=== PATIENT | male | born 1950 | race Caucasian/White ===

== ENCOUNTER → 2024-10-08 | Outpatient (CLI) | payer OTHER, SELFPAY ==
[2024-10-08 08:52] LABS: Basophils # (Auto) 0.1 Thou/mm3 (0.0-0.2); Basophils % (Auto) 1 % (0-2.5); Eosinophils # (Auto) 0.3 Thou/mm3 (0.0-0.5); Eosinophils % (Auto) 4 % (0-10); Glucose Estimated Average 117 mg/dL (80-131); Hematocrit 48.7 % (41.0-53.0); Hemoglobin A1C 5.7 % Hgb (4.8-6.0); Immature Granulocytes % (Auto) 0 % (0-0); Immature Granulocytes Auto 0.02 Thou/mm3 (0.00-0.00); Lymphocytes # (Auto) 2.2 Thou/mm3 (1.0-4.8); Lymphocytes % (Auto) 30 % (10-50); Mean Corpuscular HGB Conc 34.9 g/dl (31.0-37.0); Mean Corpuscular Hemoglobin 32.5 pg (25.0-35.0); Mean Corpuscular Volume 93 fL (80-100); Monocytes # (Auto) 0.6 Thou/mm3 (0.0-0.8); Monocytes % (Auto) 9 % (0-12); Neutrophils # (Auto) 4.3 Thou/mm3 (1.8-7.7); Neutrophils % (Auto) 57 % (37-80); Nucleated Red Blood Cell % 0 /100 WBC (0); Platelet Count 211 Thou/mm3 (140-440); RDW Standard Deviation 42.5 fL (35.1-43.9); Red Blood Count 5.23 Miln/mm3 (4.50-5.90); White Blood Count 7.5 Thou/mm3 (3.8-10.6)
[2024-10-08 09:11] LABS: Alanine Aminotransferase 16 U/L (10-49); Albumin, Serum 4.3 gm/dL (3.4-4.8); Albumin/Globulin Ratio 1.8 (1.2-2.2); Alkaline Phosphatase 97 U/L (46-116); Anion Gap 7 (7-16); BUN/Creatinine Ratio 12 Ratio (12-20); Bilirubin,Total 1.1 mg/dL (0.3-1.2); Blood Urea Nitrogen 12 mg/dL (9-23); Calcium 9.6 mg/dL (8.3-10.6); Calcium (Corrected) 9.6 mg/dL (8.5-10.1); Carbon Dioxide 28.7 mMol/L (20.0-31.0); Cardiac Risk Estimate 4.6 RATIO (4.0-6.7); Chloride 107 mMol/L (98-107); Cholesterol 202 mg/dL (132-200); Globulin 2.4 gm/dL (2.3-3.5); Glucose 110 mg/dL (74-106); HDL Cholesterol 44 mg/dL (40-60); LDL Cholesterol,Calculated 121 mg/dL (0-130); Osmolality,Calculated 285 (275-295); Potassium 4.5 mMol/L (3.4-5.1); Sodium 143 mMol/L (136-145); Total Protein 6.7 gm/dL (5.7-8.2); Triglycerides 186 mg/dL (30-150); eGFR > 60 See Note
== END | disposition home or self-care (01) ==
LOC: COPL 07:34
PROVIDERS: PCP Family Medicine; Referring Provider Family Medicine; Visit Provider Family Medicine
DX: I10 Essential (primary) hypertension (principal)
CPT/HCPCS: 36415; 80053; 80061; 83036; 85025

== ENCOUNTER → 2025-03-16 | Outpatient (CLI) | payer OTHER, SELFPAY ==
--- NOTE | 2025-03-16 11:15 | XR_ITS ---
Examination: CT brain head without contrast. 2-D sagittal coronal reconstructions Date and time of exam: March 16, 2025, 1123 hours, comparison October 21, 2010 INDICATIONS: Syncopal-like episodes beginning 3 days ago CTDI: vol (mGy): 46.1 DLP: (mGycm): 959 Technique: Multiple CT axial sections of the brain have been obtained, 5 mm slice thickness. Contrast has not been administered. 2-D sagittal, coronal reconstructions have been obtained Low dose protocols were performed. One or more of the following dose reduction techniques were used; automated exposure control, adjustment of the mA and/or KV according to patient size, use of iterative reconstruction technique. Findings: No significant ventricular enlargement. Intra-axial or extra-axial hemorrhage density is not seen. No mass effect or midline shift Basal cisterns are not remarkable. Fourth ventricle is midline. Cranial vault intact. Impression: Negative for acute hemorrhage, mass effect or midline shift If new onset syncopal episodes persist, consider brain MRI follow-up
== END | disposition home or self-care (01) ==
LOC: CDIM 11:07
PROVIDERS: PCP Family Medicine; Referring Provider Internal Medicine; Visit Provider Internal Medicine
DX: R55 Syncope and collapse (principal)
CPT/HCPCS: 70450

== ENCOUNTER → 2025-03-16 | Outpatient (CLI) | payer OTHER, SELFPAY ==
[2025-03-16 11:07] LABS: Glucose Estimated Average 114 mg/dL (80-131); Hemoglobin A1C 5.6 % Hgb (4.8-6.0)
[2025-03-16 11:17] LABS: Alanine Aminotransferase 21 U/L (10-49); Albumin, Serum 4.7 gm/dL (3.4-4.8); Albumin/Globulin Ratio 2.1 (1.2-2.2); Alkaline Phosphatase 97 U/L (46-116); Anion Gap 10 (7-16); Aspartate Amino Transferase 23 U/L (0-34); BUN/Creatinine Ratio 11 Ratio (12-20); Bilirubin,Total 0.8 mg/dL (0.3-1.2); Blood Urea Nitrogen 11 mg/dL (9-23); Calcium 9.4 mg/dL (8.3-10.6); Calcium (Corrected) 9.4 mg/dL (8.5-10.1); Carbon Dioxide 28.4 mMol/L (20.0-31.0); Chloride 104 mMol/L (98-107); Creatinine (Component) 1.0 mg/dL (0.6-1.3); Free T4 (Free Thyroxine) 1.32 ng/dL (0.89-1.76); Globulin 2.2 gm/dL (2.3-3.5); Glucose 168 mg/dL (74-106); Osmolality,Calculated 286 (275-295); Potassium 4.0 mMol/L (3.4-5.1); Sodium 142 mMol/L (136-145); Thyroid Stimulating Hormone 3.01 uIU/mL (0.55-4.78); Total Protein 6.9 gm/dL (5.7-8.2); eGFR > 60 See Note
[2025-03-16 11:21] LABS: Basophils # (Auto) 0.1 Thou/mm3 (0.0-0.2); Basophils % (Auto) 1 % (0-2.5); Eosinophils # (Auto) 0.3 Thou/mm3 (0.0-0.5); Eosinophils % (Auto) 4 % (0-10); Hematocrit 50.0 % (41.0-53.0); Hemoglobin 17.5 g/dL (13.5-16.0); Immature Granulocytes Auto 0.04 Thou/mm3 (0.00-0.00); Lymphocytes # (Auto) 2.6 Thou/mm3 (1.0-4.8); Lymphocytes % (Auto) 31 % (10-50); Mean Corpuscular HGB Conc 35.0 g/dl (31.0-37.0); Mean Corpuscular Hemoglobin 33.1 pg (25.0-35.0); Mean Corpuscular Volume 95 fL (80-100); Monocytes # (Auto) 0.5 Thou/mm3 (0.0-0.8); Monocytes % (Auto) 6 % (0-12); Neutrophils # (Auto) 4.8 Thou/mm3 (1.8-7.7); Neutrophils % (Auto) 58 % (37-80); Nucleated Red Blood Cell # 0.00 Thou/mm3 (0.00-0.00); Nucleated Red Blood Cell % 0 /100 WBC (0); Platelet Count 222 Thou/mm3 (140-440); RDW Standard Deviation 43.1 fL (35.1-43.9); Red Blood Count 5.29 Miln/mm3 (4.50-5.90); White Blood Count 8.3 Thou/mm3 (3.8-10.6)
== END | disposition home or self-care (01) ==
LOC: COPL 10:17
PROVIDERS: PCP Internal Medicine; Referring Provider Internal Medicine; Visit Provider Internal Medicine
DX: R55 Syncope and collapse (principal)
CPT/HCPCS: 36415; 80053; 83036; 84439; 84443; 85025

== ENCOUNTER 2025-04-23 01:03 | Emergency (ER) | payer OTHER, SELFPAY ==
[2025-04-23 01:06] VITALS: BMI 30.1
--- NOTE | 2025-04-23 01:15 | EKG_ITS ---
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
[2025-04-23 01:31] VITALS: BP 144/82; PULSE 68; RESP 18; TEMP 36.9; O2SAT 96
--- NOTE | 2025-04-23 01:49 | XR_ITS ---
Examination: CT brain head without contrast. 2-D sagittal coronal reconstructions Date and time of exam: April 23, 2025, 0200 hours INDICATIONS: High blood pressure with seizure today CTDI: vol (mGy): 48.7 DLP: (mGycm): 925 Technique: Multiple CT axial sections of the brain have been obtained, 5 mm slice thickness. Contrast has not been administered. 2-D sagittal, coronal reconstructions have been obtained Low dose protocols were performed. One or more of the following dose reduction techniques were used; automated exposure control, adjustment of the mA and/or KV according to patient size, use of iterative reconstruction technique. Findings: No significant ventricular enlargement. Intra-axial or extra-axial hemorrhage density is not seen. No mass effect or midline shift Basal cisterns are not remarkable. Fourth ventricle is midline. Cranial vault intact. Impression: Negative for acute hemorrhage, mass effect or midline shift Consider brain MRI follow-up, pre and post contrast, seizure protocol
--- NOTE | 2025-04-23 01:50 | EDRME_ITS ---
Rapid Medical Screening Exam [facility] Arrival date/time: 04/23/25 01:03 74M with history of HTN and anxiety presents to ED with episode of sleeping walking (per son) and then patient's eyes rolled back for about 1 min. No obvious shaking. This is the 3rd episode, but patient hasn't seen neurologist yet. Patient does not remember any of this happening. Chief Complaint: General Adult/Misc Complain Vital signs: Vital Signs Temperature 98.4 F 04/23/25 01:31 Pulse Rate 68 04/23/25 01:31 Respiratory Rate 18 04/23/25 01:31 Blood Pressure 144/82 H 04/23/25 01:31 Pulse Oximetry (%) 96 04/23/25 01:31 Oxygen Delivery Method Room Air 04/23/25 01:31 Exam: Normal pupil response and EOM. CN II-XII grossly intact. Neg pronator drift test. Speech intact. Clinical Impression: seizure disorder vs motor disorder vs functional disorder vs CVA/TIA vs sleepwalking vs electrolyate abnormality vs drug use
[2025-04-23 02:14] LABS: Lactate (Lactic Acid) 1.4 mMol/L (0.4-2.0)
[2025-04-23 02:15] VITALS: BP 144/64; PULSE 61; RESP 18; TEMP 36.6; O2SAT 95
[2025-04-23 02:16] LABS: Basophils # (Auto) 0.1 Thou/mm3 (0.0-0.2); Basophils % (Auto) 1 % (0-2.5); Eosinophils # (Auto) 0.3 Thou/mm3 (0.0-0.5); Eosinophils % (Auto) 3 % (0-10); Hematocrit 46.9 % (41.0-53.0); Hemoglobin 16.5 g/dL (13.5-16.0); Immature Granulocytes Auto 0.03 Thou/mm3 (0.00-0.00); Lymphocytes # (Auto) 2.3 Thou/mm3 (1.0-4.8); Lymphocytes % (Auto) 19 % (10-50); Mean Corpuscular HGB Conc 35.2 g/dl (31.0-37.0); Mean Corpuscular Hemoglobin 32.4 pg (25.0-35.0); Mean Corpuscular Volume 92 fL (80-100); Monocytes # (Auto) 0.6 Thou/mm3 (0.0-0.8); Monocytes % (Auto) 5 % (0-12); Neutrophils # (Auto) 8.6 Thou/mm3 (1.8-7.7); Neutrophils % (Auto) 72 % (37-80); Nucleated Red Blood Cell # 0.00 Thou/mm3 (0.00-0.00); Nucleated Red Blood Cell % 0 /100 WBC (0); Platelet Count 238 Thou/mm3 (140-440); RDW Standard Deviation 41.5 fL (35.1-43.9); Red Blood Count 5.10 Miln/mm3 (4.50-5.90); White Blood Count 12.0 Thou/mm3 (3.8-10.6)
[2025-04-23 02:36] LABS: Alanine Aminotransferase 22 U/L (10-49); Albumin, Serum 4.2 gm/dL (3.4-4.8); Albumin/Globulin Ratio 1.4 (1.2-2.2); Alkaline Phosphatase 113 U/L (46-116); Anion Gap 8 (7-16); Aspartate Amino Transferase 28 U/L (0-34); BUN/Creatinine Ratio 10 Ratio (12-20); Bilirubin,Total 0.5 mg/dL (0.3-1.2); Blood Urea Nitrogen 9 mg/dL (9-23); Calcium 9.5 mg/dL (8.3-10.6); Calcium (Corrected) 9.5 mg/dL (8.5-10.1); Carbon Dioxide 26.9 mMol/L (20.0-31.0); Chloride 106 mMol/L (98-107); Creatinine (Component) 0.9 mg/dL (0.6-1.3); Estimated Creatinine Clearance 79.6 mL/min (>60); Globulin 3.0 gm/dL (2.3-3.5); Glucose 125 mg/dL (74-106); Osmolality,Calculated 280 (275-295); Potassium 3.9 mMol/L (3.4-5.1); Sodium 141 mMol/L (136-145); Total Protein 7.2 gm/dL (5.7-8.2); eGFR > 60 See Note
--- NOTE | 2025-04-23 02:37 | PRELIM_ITS ---
CT scan of the head without intravenous contrast (axial sections with sagittal and coronal reformats) April 23, 2025 0206 hours. Clinical history: Possible seizure. Comparison: No prior study is available for comparison. Findings: There is no evidence of acute intracranial hemorrhage, mass effect or midline shift. An old lacunar infarct is noted in the right basal ganglia. There are subcortical and periventricular white matter hypodensities, compatible with chronic small vessel ischemia. There is mild volume loss. Basal ganglia calcifications are present bilaterally. There is atheromatous calcification of the intracranial arteries. A prominent cisterna magna is incidentally noted. The calvarium is unremarkable. The mastoid air cells and the visualized paranasal sinuses are clear. Impression: No evidence of acute intracranial hemorrhage, mass effect or midline shift. If there are persistent clinical symptoms or additional clinical concerns consider an MRI. Periventricular chronic small vessel ischemia and volume loss. Report Electronically Signed By: Padilla Dimas 04/23/2025 2:36:11 AM [EST]
--- NOTE | 2025-04-23 02:40 | PC.NURSE ---
Patient in room 6 at the ED, patient is alert and oriented x3, son at the bedside. Awaiting on CT scan report and blood work to come back.Patient care assumed at this time.
--- NOTE | 2025-04-23 03:17 | EDNOTE_ITS ---
Neuro Symptoms Deficit-RME/HPI General Chief Complaint: General Adult/Misc Complain Stated Complaint: HIGH BP POSS SZ Arrival date/time: 04/23/25 01:03 RME / HPI RME / HPI Narrative: 04/23/25 01:03 74M with history of HTN and anxiety presents to ED with episode of sleeping walking (per son) and then patient's eyes rolled back for about 1 min. No obvious shaking. This is the 3rd episode, but patient hasn't seen neurologist yet. Patient does not remember any of this happening. DR. NIELSEN MAIN ED EVALUATION: Patient presenting by son after patient had demonstrated short-term memory loss, thought to be sleep walking, and upon awakening his eyes rolled back without extensor posturing. Denies urinary or bowel incontinence, or tongue bite. Episode lasted briefly and symptoms resolved, and patient presented to ED for evaluation. No dysarthria, disequilibrium, or lateralizing motor deficits. Son reports 1 prior episode with similar symptoms approximately 1 month [employer] with spontaneous resolution. PMH: HTN PSH: Unremarkable Allergies: NKDA Social: Negative for alcohol, tobacco, and illicit drug abuse Exam: Normal pupil response and EOM. CN II-XII grossly intact. Neg pronator drift test. Speech intact. Impression: seizure disorder vs motor disorder vs functional disorder vs CVA/TIA vs sleepwalking vs electrolyate abnormality vs drug use Related Data Home Medications ?Medication ?Instructions ?Recorded ?Confirmed bupropion HCl 150 mg tablet,12 hr 150 mg PO QDAY Depre ssion ##0 05/18/16 sustained-release (Wellbutrin SR) Previous Rx's ?Medication ?Instructions ?Recorded Sulfamethoxazole/Trimethoprim DS * 1 tab PO BID #20 ta bs 05/18/16 (BACTRIM DS *) Allergies Allergy/AdvReac Type Severity Reaction Status Date / Time NKA* Allergy Uncoded 04/23/25 04:56 Review of Systems Review of Systems Systems Reviewed: All systems reviewed, normal except as documented Past Medical History Past Medical History CARDIAC: Positive Hypertension Social History SMOKING STATUS: Never smoker ED Exam Narrative Physical exam: GEN. APPEARANCE: The patient is alert awake oriented X-3 under no distress, lying down comfortably, does not look ill/toxic. Patient has good eye contact. Patient is cooperative. VITALS: All vitals were reviewed and the pulse ox is 95%, which is normal according to my interpretation HEENT: Normocephalic, atraumatic and nontender. Pupils are equal and reactive. Oral mucosa is moist. NECK: Supple, nontender, no meningismus, no JVD. There is no thyromegaly and no lymphadenopathy. CHEST: Nontender on palpation no deformity and no crepitus. CARDIOVASCULAR: Heart regular rhythm, no murmur or gallop rub or extra beats. LUNGS: Clear to auscultation bilaterally with symmetrical chest rise. No laboring tachypnea or wheezing. No intercostal subcostal retraction. No rales and no rhonchi. ABDOMEN: Soft, flat, nontender to palpation, no guarding or rebound tenderness. There are no abnormal masses palpated. No pulsatile masses or bruits. Active and normal bowel sounds. EXTREMITIES: Normal inspection and palpation. No edema. No cyanosis. Patient is able to move all 4 extremities well SKIN: Warm and dry, no rashes noted. MUSCULOSKELETAL: No lumbar or midline bony tenderness. There is no CVA tenderness. No paraspinal muscle spasm or tenderness. NEURO: Cranial nerves II through XII grossly intact. There are no focal neurologic deficits noted. GCS is 15 PSYCHIATRIC: Patient is in normal mood and affect, cooperative. LYMPHATICS: No major lymphadenopathy noted. Course Course Course Narrative: 0600: Care assumed by Dr. Wick (emergency physician). Past medical, surgical, social and family history reviewed. Vitals and home medications reviewed. Results and treatment plan discussed. They will assume the care of the patient at this time and will follow the patient, pending CTA. Quality Measures none Orders Category Date Time Status Blood glucose [Bedside Blood Glucose] NOW Care 04/23/25 01:15 Completed EKG (ED ONLY) *Do not use* NOW Care 04/23/25 01:[address] head/brain wo con Stat Exams 04/23/25 01:49 Taken EKG (ED Only) Stat Exams 04/23/25 01:15 Draft CBC Stat Lab 04/23/25 02:02 Completed CMP [Comprehensive Metabolic Panel] Stat Lab 04/23/25 02:02 Completed Lactate (Lactic Acid) Stat Lab 04/23/25 02:02 Completed Vital Signs Vital signs: Vital Signs Temperature 98.4 F 04/23/25 01:31 Pulse Rate 68 04/23/25 01:31 Respiratory Rate 18 04/23/25 01:31 Blood Pressure 144/82 H 04/23/25 01:31 Pulse Oximetry (%) 96 04/23/25 01:31 Oxygen Delivery Method Room Air 04/23/25 01:31 Neuro Symptoms / Deficit MDM Narrative MDM Narrative:: Scribe Attestation: I, Kristel Samuels, am scribing for and in the presence of Dr. Nielsen. Provider Notation: Although this document has been carefully reviewed, there may still be some phonetic and other typographical errors. These errors are purely grammatical due to imperfections in the software program and should not be construed in any way to compromise the substance of the patient's medical care during this visit. Patient presenting by son after patient had demonstrated short-term memory loss, thought to be sleep walking, and upon awakening his eyes rolled back without extensor posturing. Denies urinary or bowel incontinence, or tongue bite. Please see PE findings. Laboratory markers, including CBC and serum chemistries, demonstrated elevated WBC of 12, Hgb of 16.5, and normal platelet count in differential. Patient placed on cardiac rehabilitation specialist and observed for an extended period of time with no recurrent episodes of confusion, or possible seizure-like activity. CT demonstrates small vessel ischemic changes and volume loss. Given absence of tonic-clonic activity will differ on anticonvulsants. Pending CTA. Please see AM physician's note for final diagnosis and disposition. Patient data External records reviewed:: [facility] previous records (No prior ED records available for review.) Clinical information provided by:: patient Social determinants that could affect healthcare access:: none Patient has the following chronic illnesses:: HTN How is presenting disease/condition affected by chronic disease/condition?: exacerbated by Evaluation data The following diagnostics were reviewed and interpreted by me:: lab results, radiology exam(s) and EKG tracing(s) (EKG at 01:30 shows normal sinus rhythm at 62, leftward axis, no ectopy, first degree heart block, per my interpretation.) Lab and/or radiology exams considered but not ordered:: None Interpretation Summary: RADIOLOGY Head/Brain CT: Findings: There is no evidence of acute intracranial hemorrhage, mass effect or midline shift. An old lacunar infarct is noted in the right basal ganglia. There are subcortical and periventricular white matter hypodensities, compatible with chronic small vessel ischemia. There is mild volume loss. Basal ganglia calcifications are present bilaterally. There is atheromatous calcification of the intracranial arteries. A prominent cisterna magna is incidentally noted. The calvarium is unremarkable. The mastoid air cells and the visualized paranasal sinuses are clear. Impression: No evidence of acute intracranial hemorrhage, mass effect or midline shift. If there are persistent clinical symptoms or additional clinical concerns consider an MRI. Periventricular chronic small vessel ischemia and volume loss. Medications / Prescriptions Medications or Prescriptions considered but not ordered:: None Medication administrations:: See above if any. Consultations Consultation(s) initiated? (list below): No Diagnosis Neuro Differential Diagnosis: convulsions, delirium, subarachnoid hemorrhage, peripheral neuropathy and transient cerebral ischemia Most likely diagnosis given after review of the tests above:: Altered mental status Admission Indicated Admission indicated?: not indicated Explain why admission is indicated or not indicated:: Pending CTA. Admission Request Was there a request for admission?: No Disposition Plan Disposition Plan: other (specify) (Signed out to Dr. Wick at 6 AM) Discharge Plan Plan Discharge Disposition comment: Stable Prescriptions/Referrals Prescriptions/Med Rec: No Action bupropion HCl [Wellbutrin SR] 150 MG tablet extended release 12 hr 150 mg PO QDAY Qty: 0 Sulfamethoxazole/Trimethoprim DS * (BACTRIM DS *) 1 TAB tablet 1 tab PO BID Qty: 20 0RF Referrals: Pepe Christianson MD [Primary Care Provider, Family Practice] - In 1 week Problem List Clinical Impression: Mental status alteration Impression comment: Altered mental status Patient/Caregiver Discharge Instructions Discharge Activity: activity as tolerated Other Activity Instructions:: No high risk activities i.e. swimming/cycling Education Materials: ED ALOC Additional Instructions: Avoid high risk activities i.e. cycling/swimming. Follow-up with primary care doctor for outpatient MRI/EEG. Print Language: Mauritanian
[2025-04-23 03:49] VITALS: PULSE 63; RESP 16; TEMP 36.7; O2SAT 94
== END 2025-04-23 03:51 | disposition home or self-care (01) ==
PROVIDERS: Physician Assistant; Emergency Provider Emergency Medicine; PCP Family Medicine
DX: R41.82 Altered mental status, unspecified (principal); I10 Essential (primary) hypertension; F41.9 Anxiety disorder, unspecified
CPT/HCPCS: 36415; 70450; 80053; 80307; 81001; 83605; 85025; 93005; 99283

== ENCOUNTER 2025-04-23 04:50 | Inpatient (IN) | payer OTHER, MEDICARE, SELFPAY ==
[2025-04-23] VITALS (7 sets, daily range): BP systolic 122–175; BP diastolic 56–74; PULSE 65–79; RESP 14–18; TEMP 36.6–37.1; O2SAT 94–97; BMI 29.7
--- NOTE | 2025-04-23 | XR_ITS ---
Examination: MRI of brain without intravenous contrast. MRI brain with intravenous contrast. Date and time of exam: April 23, 2025, 12:35 p.m. INDICATIONS: Seizure episode today with stroke alert Technique: Multiple axial and sagittal images of the brain to been obtained. Siemens high-resolution 1.52 Amy short bore scanner utilized. Sagittal sections, T1 weighted images, TR 500, TE 14, are performed. Axial sections proton-density and T2-weighted images have been obtained. Inversion recovery axial images, TR 9260, TE 111, TR 2500. Diffusion weighted images, axial sections, TR 4800, TE 128, B value 1000. Axial sections, ADC map, TR 4800, TE 128. Axial and coronal images were also obtained post 18 cc gadolinium administered intravenously. Findings:: Enlargement of the sella turcica is not present. The optic chiasm and infundibular stalk are not remarkable. There is no localized enlargement of the medulla or thompson. Fourth ventricle and cerebellar tonsils appear normal in position. No subacute area of hemorrhage density is seen. Fourth ventricle is midline. Mass in the cerebellopontine angle region is not evident. 7th and 8th nerve complexes exhibit symmetry Globes are symmetrical Orbital musculature including medial lateral rectus muscles do not exhibit abnormality Increased white matter signal is prominent Effacement of the cortical sulcal markings is not identified. Mass effect upon the ventricular system is not identified. Diffusion-weighted images demonstrate no focus of restricted diffusion Contrast images demonstrate no abnormal enhancement Impression: Negative for acute hemorrhage mass effect or midline shift No acute infarct Prominent chronic microvascular white matter change
--- NOTE | 2025-04-23 05:00 | XR_ITS ---
Examination: CTA carotids with intravenous contrast CTA brain, head with intravenous contrast. 2-D sagittal, coronal reconstructions. 3-D reconstructions. Exam date and time: April 23, 2025, 0711 hours INDICATION: Stroke alert, onset focal neurologic deficit today CTDI: vol (mGy) 17.9 DLP: (mGycm) 466 Technique: Multiple CTA axial brain, head carotid images post intravenous contrast injection 100 cc, [id number]. 2-D sagittal, coronal reconstructions. 3-D reconstructions, 3-D post processing including vascular maximum intensity projection images. Low dose protocols were performed. One or more of the following dose reduction techniques were used; automated exposure control, adjustment of the mA and/or KV according to patient size, use of iterative reconstruction technique. Findings: No significant common carotid carotid bifurcation or internal carotid artery stenoses Heterogeneous thyroid lobes Dominant left vertebral artery with no critical stenoses in the neck Intracranial vertebral arteries basilar artery and posterior cerebral branches fill with no large vessel occlusions Petrous juxtasellar supraclinoid portions internal carotid arteries intact M1 segments middle cerebral arteries middle cerebral artery trifurcation vessels anterior cerebral arteries fill with no large vessel occlusions IMPRESSION: No significant neck arterial stenoses No cerebral large vessel arterial occlusions or thrombus
--- NOTE | 2025-04-23 05:33 | EDNOTE_ITS ---
Altered Mental Status RME/HPI General Chief Complaint: Altered Mental Status Stated Complaint: CONFUSED Time Seen by Provider: 04/23/25 05:00 Arrival date/time: 04/23/25 04:50 RME / HPI RME / HPI narrative: Related Data Home Medications ?Medication ?Instructions ?Recorded ?Confirmed amlodipine 5 mg tablet 5 mg PO QDAY 04/23/25 propranolol 60 mg capsule,24 60 mg PO QDAY 04/23/25 hr,extended release Allergies Allergy/AdvReac Type Severity Reaction Status Date / Time NKA* Allergy Uncoded 04/23/25 04:56 ED Exam Narrative Physical exam: GEN. APPEARANCE: The patient is alert awake oriented X-3 under no distress, lying down comfortably, does not look ill/toxic. Patient has good eye contact. Patient is cooperative. VITALS: All vitals were reviewed and the pulse ox is 95%, which is normal according to my interpretation HEENT: Normocephalic, atraumatic and nontender. Pupils are equal and reactive. Oral mucosa is moist. NECK: Supple, nontender, no meningismus, no JVD. There is no thyromegaly and no lymphadenopathy. CHEST: Nontender on palpation no deformity and no crepitus. CARDIOVASCULAR: Heart regular rhythm, no murmur or gallop rub or extra beats. LUNGS: Clear to auscultation bilaterally with symmetrical chest rise. No laboring tachypnea or wheezing. No intercostal subcostal retraction. No rales and no rhonchi. ABDOMEN: Soft, flat, nontender to palpation, no guarding or rebound tenderness. There are no abnormal masses palpated. No pulsatile masses or bruits. Active and normal bowel sounds. EXTREMITIES: Normal inspection and palpation. No edema. No cyanosis. Patient is able to move all 4 extremities well SKIN: Warm and dry, no rashes noted. MUSCULOSKELETAL: No lumbar or midline bony tenderness. There is no CVA tenderness. No paraspinal muscle spasm or tenderness. NEURO: Cranial nerves II through XII grossly intact. There are no focal neurologic deficits noted. GCS is 15 PSYCHIATRIC: Patient is in normal mood and affect, cooperative. LYMPHATICS: No major lymphadenopathy noted. Course Course Course Narrative: 0600: Care assumed by Dr. Wick (emergency physician). Past medical, surgical, social and family history reviewed. Vitals and home medications reviewed. Results and treatment plan discussed. They will assume the care of the patient at this time and will follow the patient, pending CTA. Quality Measures none Orders Category Date Time Status Bedside Blood Glucose NOW Care 04/23/25 10:23 Active COVID-19 Screening Questionnaire NOW Care 04/23/25 10:40 Active COVID-19 Screening Questionnaire NOW Care 04/23/25 11:32 Completed International Account Representative NOW Care 04/23/25 10:23 Active Continuous Pulse Oximetry NOW Care 04/23/25 10:23 Completed Decision to Admit X1 Care 04/23/25 10:40 Completed Decision to Admit X1 Care 04/23/25 11:32 Completed EKG (ED ONLY) *Do not use* NOW Care 04/23/25 10:23 Completed Insert IV NOW Care 04/23/25 10:[address] angio stroke protocol Stat Exams 04/23/25 05:00 Completed EKG (ED Only) Stat Exams 04/23/25 10:23 Draft Alcohol, Blood Medical Stat Lab 04/23/25 11:02 Completed Ammonia Stat Lab 04/23/25 11:02 Completed Blood Culture (Lab) Stat Lab 04/23/25 11:02 Received CBC Stat Lab 04/23/25 11:02 Completed Comprehensive Metabolic Panel Stat Lab 04/23/25 11:02 Completed Drug Screen,Urine Stat Lab 04/23/25 10:31 Completed Lactate (Lactic Acid) Stat Lab 04/23/25 11:02 Completed Magnesium Stat Lab 04/23/25 11:02 Completed Partial Thromboplastin Time Stat Lab 04/23/25 11:02 Completed Procalcitonin Stat Lab 04/23/25 11:02 Completed Prothrombin Time with INR Stat Lab 04/23/25 11:02 Completed Thyroid Stimulating Hormone Stat Lab 04/23/25 11:02 Completed Troponin I Stat Lab 04/23/25 11:02 Completed Urinalysis, C/S if Indicated Stat Lab 04/23/25 10:31 Completed Sodium Chloride 0.9% 1000 ml [Ns] 1,000 ml Med 04/23/25 10:23 Discontinued IV 1,000 mls/hr cefTRIAXone/D5w 1gm IV premix [Rocephin/D5w 1gm IV Med 04/23/25 10:26 Discontinued premix] 1 gm in 50 ml IV X1 Oxygen Delivery NOW RT 04/23/25 10:23 Active Vital Signs Vital signs: Vital Signs Temperature 97.8 F 04/23/25 04:57 Respiratory Rate 18 04/23/25 04:57 Blood Pressure 175/74 H 04/23/25 04:57 Pulse Oximetry (%) 97 04/23/25 04:57 Oxygen Delivery Method Room Air 04/23/25 04:57 Altered Mental Status MDM Narrative MDM Narrative:: Scribe Attestation: IKristel, am scribing for and in the presence of Dr. Garcia. Provider Notation: Although this document has been carefully reviewed, there may still be some phonetic and other typographical errors. These errors are purely grammatical due to imperfections in the software program and should not be construed in any way to compromise the substance of the patient's medical care during this visit. Please see PE findings. Laboratory markers, including CBC and serum chemistries, demonstrated elevated WBC of 12, Hgb of 16.5, and normal platelet count inferential. Patient placed on quality assurance monitor body and observed for an extended period of time with no recurrent episodes of confusion, or possible seizure-like activity. CT demonstrates small vessel ischemic changes and volume loss. Given absence of tonic-clonic activity will differ on anticonvulsants. Pending CTA. Please see AM physician's note for final diagnosis and disposition. Patient data External records reviewed:: [facility] previous records (No prior ED records available for review.) Clinical information provided by:: patient Social determinants that could affect healthcare access:: none Patient has the following chronic illnesses:: Hypertension How is presenting disease/condition affected by chronic disease/condition?: uneffected by Evaluation data The following diagnostics were reviewed and interpreted by me:: lab results, radiology exam(s) and EKG tracing(s) Lab and/or radiology exams considered but not ordered:: None Interpretation Summary: RADIOLOGY Medications / Prescriptions Medications or Prescriptions considered but not ordered:: None Medication administrations:: Medication Administration History Acetaminophen (Acetaminophen 325 Mg Tablet) 650 mg PO Q6H PRN PRN Reason: Fever >100.4 or pain Stop: 05/23/25 11:41 Amlodipine Besylate (Amlodipine Besylate 5 Mg Tablet) 5 mg PO QDAY [facility] Stop: 05/24/25 08:59 Docusate Sodium (Docusate Sod 100 Mg Capsule) 100 mg PO QDAY ANN; Protocol Stop: 05/24/25 08:59 Enoxaparin Sodium (Enoxaparin Sod Inj 40 Mg/0.4 Ml Syringe) 40 mg SC QDAY ANN Stop: 05/08/25 08:59 Ondansetron HCl (Ondansetron Inj 2 Mg/Ml Inj 2 Ml) 4 mg IVP Q6H PRN; Protocol PRN Reason: NAUSEA OR VOMITING Stop: 05/23/25 11:41 Pantoprazole Sodium (Pantoprazole Inj 40 Mg Vial) 40 mg IVP QDAY ANN Stop: 05/24/25 08:59 Discontinued Medications Sodium Chloride (Ns) 1,000 mls @ 1,000 mls/hr IV .Q1H ONE Stop: 04/23/25 11:22 Last Infusion: 04/23/25 13:37 Dose: Infused Documented By: Admin: 04/23/25 11:09 Dose: 1,000 mls/hr Documented By: PATRICK Ceftriaxone Sodium/Dextrose (Rocephin/D5w 1gm Iv Premix) 1 gm in 50 mls @ 100 mls/hr IV X1 ONE Stop: 04/23/25 10:55 Last Infusion: 04/23/25 11:55 Dose: Infused Documented By: Admin: 04/23/25 11:10 Dose: 100 mls/hr Documented By: VG See above if any. Consultations Consultation(s) initiated? (list below): No Diagnosis Differential diagnosis altered mental status: alcoholic intoxication, altered mental status, delirium, hypoglycemia, hyponatremia and sepsis Most likely diagnosis given after review of the tests above:: Altered mental status Admission Indicated Admission indicated?: not indicated Explain why admission is indicated or not indicated:: Pending CTA. Admission Request Was there a request for admission?: No Disposition Plan Disposition Plan: other (specify) (Signed out to Dr. Wick at 6 AM) Discharge Plan Plan Patient Disposition: Admit Acute Care w/in Hospital Problem List Clinical Impression: Mental status alteration
--- NOTE | 2025-04-23 07:15 | PC.NURSE ---
pt taken to CT.
--- NOTE | 2025-04-23 08:03 | EDNOTE_ITS ---
Emergency Room Addendum Addendum Narrative: 0600: Care assumed from Dr. Pascual, the previous shift emergency physician. Past medical, surgical, social and family history reviewed. Vitals and home medications reviewed. I will assume the care of the patient at this time, pending CTA. Please refer to the emergency department record for history and examination from initial visit.?The following addendum documentation note is intended to reflect any pending information, findings, or radiology results not included in the patient?s initial chart. During my watch, I've witnessed two episodes in which the patient becomes disoriented, unable to recognize his location or identity, and does not re cognize his family. These episodes resolve spontaneously. 1034: I spoke with neurologist Dr. Hauser. Discussed patients PMHx, HPI, ED course, exam findings, labs, and radiology results. She recommends ordering MRI brain, EEG, and admission for further admission. 1130: I spoke with hospitalist team C for admission. Discussed patients PMHx, HPI, ED course, exam findings, labs, and radiology results. The hospitalist agree to accept the patient for admission. EKG @ 11:44 AM, interpreted by me, normal sinus rhythm, rate 71, normal axis, no ectopy, no signs of acute ischemia. RADIOLOGY Ordering Physician: Luisito Pascual DO Date of Service: 04/23/25 Procedure(s): CT angio stroke protocol Accession Number(s): [id number] cc: Luisito Pascual DO; Jordin Marinelli MD; Pepe Christianson MD~ Examination: CTA carotids with intravenous contrast CTA brain, head with intravenous contrast. 2-D sagittal, coronal reconstructions. 3-D reconstructions. Exam date and time: April 23, 2025, 0711 hours INDICATION: Stroke alert, onset focal neurologic deficit today CTDI: vol (mGy) 17.9 DLP: (mGycm) 466 Technique: Multiple CTA axial brain, head carotid images post intravenous contrast injection 100 cc, [id number]. 2-D sagittal, coronal reconstructions. 3-D reconstructions, 3-D post processing including vascular maximum intensity projection images. Low dose protocols were performed. One or more of the following dose reduction techniques were used; automated exposure control, adjustment of the mA and/or KV according to patient size, use of iterative reconstruction technique. Findings: No significant common carotid carotid bifurcation or internal carotid artery stenoses Heterogeneous thyroid lobes Dominant left vertebral artery with no critical stenoses in the neck Intracranial vertebral arteries basilar artery and posterior cerebral branches fill with no large vessel occlusions Petrous juxtasellar supraclinoid portions internal carotid arteries intact M1 segments middle cerebral arteries middle cerebral artery trifurcation vessels anterior cerebral arteries fill with no large vessel occlusions IMPRESSION: No significant neck arterial stenoses No cerebral large vessel arterial occlusions or thrombus Dictated By: Jordin Marinelli MD Signed By: <Electronically signed by Jordin Marinelli MD in [place]>04/23/25 0736
--- NOTE | 2025-04-23 10:23 | EKG_ITS ---
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
[2025-04-23 10:34] LABS: Collection Type, Urine Clean Catch
--- NOTE | 2025-04-23 10:46 | ESHP_ITS ---
<Statement entered by Denton Gallagher MD - 04/23/25 14:29> 74-year-old male patient with significant medical history for anxiety and hypertension who lives brought into the ED by family members for acute encephalopathy. Patient had similar incident a month ago for which he underwent studies that were found to be normal and thus patient was sent home from the ED. Per son who accompanies the patient, this morning patient had another episode of AMS described as unresponsive, disoriented and without convulsive activity. When patient was examined in ED, he was at baseline. Per son his last episode that happened a month ago lasted for 15 minutes which was witnessed by patient's . Today in the ED vitals and labs were within normal limits. Head imaging were negative for bleeding, stenosis or midline shift. Urinalysis was negative for UTI and toxicology was negative. Neurologist Dr Hauser was consulted, EEG and brain MRI with and without contrast was ordered. I discussed with and supervised the legal internship physician involved in the care of this patient. Patient assessment and plan was discussed with entire medicine team, including my attending. I agree with the assessment and plan as documented by legal internship doctor. Patient care was discussed with my attending physician Dr. Janet Gallagher, PGY-3 Documentation for date of: 04/23/25 HPI History of Present Illness Chief complaint: AMS History of present illness: 74-year-old male with a history of hypertension and anxiety who presents with recurrent, transient episodes of altered awareness and confusion, witnessed by family. Per the patient?s sons and family members (patient is amnestic to events), the first episode occurred approximately one month ago. At that time, he was evaluated underwent multiple tests, all reportedly normal, and he was discharged home. He returned to his baseline mental status shortly afterward and had no further episodes until today. Early this morning, family observed another episode characterized by the patient becoming dazed, unresponsive, and disoriented, without convulsive activity. The episode lasted several minutes (family estimates up to ~15 minutes) and resolved spontaneously. There was no observed tonic-clonic activity, no tongue biting, no urinary incontinence, and no post-event focal weakness. The patient did not recall the episode afterward. After initially presenting to the ED earlier today and leaving, the patient returned following another witnessed episode while eating with family. During that event, he suddenly appeared confused, began fidgeting with his hands as if performing a mechanical task, reached for objects inappropriately, and was not responsive to verbal cues, though he did not lose posture or collapse. Family again denied convulsions or loss of consciousness. The episode resolved within minutes, with the patient returning to baseline but remaining completely amnestic to the event. In the ED, staff witnessed two similar transient episodes in which the patient became disoriented, did not recognize his location or family, and then returned to baseline without intervention. The patient himself denies headaches, chest pain, shortness of breath, weakness, numbness, vision changes, fever, dysuria, or recent illness. He does not recall any of the described events and repeatedly states he feels well. Neurology (Dr. Hauser) was consulted in the ED and recommended admission for further evaluation, including MRI brain and EEG, given concern for possible seizure activity versus other causes of episodic altered awareness. Review of Systems negative unless stated above Past Medical History: * Hypertension * Anxiety Past Surgical History: * None reported Medications: * Amlodipine 5 mg daily * Propranolol 60 mg daily (Family to confirm medication list) Allergies: * No known drug allergies Social History: * Lives with family * Former conveyor maintenance mechanic * Denies tobacco use * Denies illicit drug use * Rare alcohol use per family Family History: * No known family history of seizures, dementia, Alzheimer?s disease, or Parkinson?s disease Exam Vital Signs Temp Pulse Resp BP Pulse Ox O2 Del Method 98.1 F 65 18 138/73 H 97 Room Air 04/23/25 07:30 04/23/25 07:30 04/23/25 07:30 04/23/25 07:30 04/23/25 07:30 04/23/25 07:30 Narrative Exam General: Alert, awake, oriented ?3 at time of exam, no acute distress HEENT: Normocephalic, atraumatic; pupils equal and reactive; moist mucous membranes Neck: Supple, no meningismus, no JVD Cardiovascular: Regular rate and rhythm; no murmurs, rubs, or gallops Pulmonary: Clear to auscultation bilaterally; no wheezes or rales Abdomen: Soft, non-tender, non-distended; normal bowel sounds Extremities: No edema; moves all extremities spontaneously Skin: Warm, dry, no rashes Neurologic: Cranial nerves II?XII grossly intact, Strength 5/5 in all extremities, No focal deficits, GCS 15. Psychiatric: Normal mood and affect; cooperative Results: Labs 04/24/25 04:20 04/24/25 04:20 Quality Measures Quality Measures VTE prophylaxis Advance care planning discussed with:: patient and child Medications Home Medications and Allergies Home Medications ?Medication ?Instructions ?Recorded ?Confirmed ?Type amlodipine 5 mg tablet 5 mg PO QDAY 04/23/25 History propranolol 60 mg capsule,24 60 mg PO QDAY 04/23/25 History hr,extended release Allergies Allergy/AdvReac Type Severity Reaction Status Date / Time NKA* Allergy Uncoded 04/23/25 04:56 Visit Medications Sodium Chloride (Ns) 1,000 mls @ 1,000 mls/hr IV .Q1H ONE Stop: 04/23/25 11:22 Ceftriaxone Sodium/Dextrose (Rocephin/D5w 1gm Iv Premix) 1 gm in 50 mls @ 100 mls/hr IV X1 ONE Stop: 04/23/25 10:55 Assessment & Plan Plan 74-year-old male with HTN and anxiety presenting with recurrent, transient episodes of altered awareness with spontaneous resolution and post-event amnesia. # Transient altered mental status # Episodic encephalopathy Witnessed episodes of confusion, unresponsiveness, automatisms, and amnesia Labs, CT head, CTA head/neck, UA, ammonia, and tox screen unremarkable Differential includes focal impaired-awareness seizures, transient global amnesia, non-epileptic events, less likely TIA or metabolic cause Neurology consulted Plan: * MRI brain without contrast * EEG monitoring * Check vitamin B12 and folate * Seizure precautions * Neuro checks * Hold sedating medications # Hypertension On amlodipine and propranolol at home Plan: * Resume home antihypertensives once medication list confirmed * Monitor BP # Anxiety History noted; not clearly on anxiolytics currently Anxiety alone unlikely to explain witnessed episodes with amnesia Plan: * Defer treatment changes pending neurologic evaluation Health Maintenance Code Status: Full Code Diet: Regular diet VTE Prophylaxis: Enoxaparin 40 mg SC daily GI Prophylaxis: Not indicated Disposition: Admit to tele, anticipate discharge home pending MRI brain and EEG results Follow-up: Neurology follow-up pending inpatient workup ----- Plan discussed with attending physician Dr. Sweet and senior resident Dr. Aileen Cavazos MD PGY-1 Internal Medicine Attending Provider Attestation/Addendum I have seen and examined the patient. I was physically present for the nieves portions of the services provided including history, physical exam, diagnosis, treatment plans and orders. I agree with assessment and plan of care as documented by residents. After examination of the patient and review of the clinical data I feel that this patient needs admission to the hospital for further treatment/evaluation. Even though this this note was carefully revised there may still be minor errors in painter plate due to voice recognition software. Bennie Gonzales MD
[2025-04-23 10:49] LABS: Bilirubin,Urine Negative (Negative); Blood,Urine Negative (Negative); Clarity,Urine Clear (Clear/Hazy); Color,Urine Lt-Yellow (Lt Yel-Yel); Culture Indicated,Urine Not Indicated; Glucose, Urine Negative (Negative); Ketones,Urine Negative (Negative); Leukocyte Esterase,Urine Negative (Negative); Nitrite,Urine Negative (Negative); PH,Urine 7.0 (5.0-7.0); Protein,Urine Negative (Neg - Trace); RBC,Urine 3 /hpf (0-3); Specific Gravity,Urine 1.049 (1.001-1.035); Squamous Epithelial Cell,Urine < 1 /hpf (0-5); Urobilinogen,Urine Negative mg/dL (0.0-1.0); WBC,Urine 1 /hpf (0-5)
[2025-04-23 11:08] LABS: Amphetamine/Methamp Scrn,U Negative (Negative); Barbiturate Screen,Urine Negative (Negative); Benzodiazepines Screen,Urine Negative (Negative); Benzoylecgonine Screen, Ur Negative (Negative); Fentanyl Screen,Urine Negative (Negative); Opiate Screen,Urine Negative (Negative); THC Screen,Urine Negative (Negative)
[2025-04-23] MEDS: SODIUM CHLORIDE 0.9% 1000 ML 1,000 ML IV (11:09)
[2025-04-23] MEDS: cefTRIAXone/D5w 1gm IV premix 1 GM/50 ML BAG IV (11:10)
[2025-04-23 11:11] LABS: Lactate (Lactic Acid) 1.5 mMol/L (0.4-2.0)
[2025-04-23 11:39] LABS: Ammonia < 10 uMol/L (11-32)
[2025-04-23 11:47] LABS: Basophils # (Auto) 0.1 Thou/mm3 (0.0-0.2); Basophils % (Auto) 1 % (0-2.5); Eosinophils # (Auto) 0.1 Thou/mm3 (0.0-0.5); Eosinophils % (Auto) 1 % (0-10); Hematocrit 47.0 % (41.0-53.0); Hemoglobin 16.7 g/dL (13.5-16.0); Immature Granulocytes Auto 0.02 Thou/mm3 (0.00-0.00); Lymphocytes # (Auto) 2.2 Thou/mm3 (1.0-4.8); Lymphocytes % (Auto) 24 % (10-50); Mean Corpuscular HGB Conc 35.5 g/dl (31.0-37.0); Mean Corpuscular Hemoglobin 32.6 pg (25.0-35.0); Mean Corpuscular Volume 92 fL (80-100); Monocytes # (Auto) 0.6 Thou/mm3 (0.0-0.8); Monocytes % (Auto) 6 % (0-12); Neutrophils # (Auto) 6.3 Thou/mm3 (1.8-7.7); Neutrophils % (Auto) 68 % (37-80); Nucleated Red Blood Cell # 0.00 Thou/mm3 (0.00-0.00); Nucleated Red Blood Cell % 0 /100 WBC (0); Platelet Count 238 Thou/mm3 (140-440); RDW Standard Deviation 40.9 fL (35.1-43.9); Red Blood Count 5.13 Miln/mm3 (4.50-5.90); White Blood Count 9.2 Thou/mm3 (3.8-10.6)
[2025-04-23 11:58] LABS: Alanine Aminotransferase 21 U/L (10-49); Albumin, Serum 4.4 gm/dL (3.4-4.8); Albumin/Globulin Ratio 1.5 (1.2-2.2); Alcohol, Blood Medical < 3.0 mg/dL (0-10.0); Alkaline Phosphatase 96 U/L (46-116); Anion Gap 13 (7-16); Aspartate Amino Transferase 30 U/L (0-34); BUN/Creatinine Ratio 6 Ratio (12-20); Bilirubin,Total 0.7 mg/dL (0.3-1.2); Blood Urea Nitrogen 5 mg/dL (9-23); Calcium 9.2 mg/dL (8.3-10.6); Calcium (Corrected) 9.2 mg/dL (8.5-10.1); Carbon Dioxide 21.7 mMol/L (20.0-31.0); Chloride 106 mMol/L (98-107); Creatinine (Component) 0.8 mg/dL (0.6-1.3); Estimated Creatinine Clearance 89.1 mL/min (>60); Globulin 2.9 gm/dL (2.3-3.5); Glucose 120 mg/dL (74-106); Magnesium 2.0 mg/dL (1.6-2.6); Osmolality,Calculated 279 (275-295); Potassium 4.1 mMol/L (3.4-5.1); Procalcitonin < 0.04 ng/ml (0.0-0.49); Sodium 141 mMol/L (136-145); Thyroid Stimulating Hormone 2.50 uIU/mL (0.55-4.78); Total Protein 7.3 gm/dL (5.7-8.2); Troponin I < 0.002 ng/mL (0.0-0.045); eGFR > 60 See Note
[2025-04-23 12:02] LABS: INR 1.0 (0.9-1.3); Partial Thromboplastin Time 27.8 Seconds (22.0-36.0); Prothrombin Time 10.9 Seconds (9.0-12.2)
--- NOTE | 2025-04-23 12:45 | PC.NURSE ---
pt taken to MRI.
[2025-04-23 13:41] LABS: Folate > 24.00 ng/mL (>5.38); Vitamin B12 332 pg/mL (211-911)
--- NOTE | 2025-04-23 14:27 | PC.SS ---
Patient Trent Becker is a 74 Year old male admitted for Acute Encephalopathy. SS met with patient at bedside to discuss discharge plan and verify demographic information. Patient appeared alert and oriented to person place and situation. Patient reports he lives at home with his , Louisa. Patient reports his surrogate decision maker is his daughter, Toro Curtis [phone]. Patient is independent with ADL's and does not utilize any source of DME to assist with ambulation. Choice of pharmacy is [facility]. PCP is Pepe Chacon. At time of discharge family will provide transportation. Discharge plan: Home Next of kin: Daughter, Toro Curtis PCP:Pepe Christianson
--- NOTE | 2025-04-23 14:37 | PC.SS ---
Patient Trent Becker is a 74 Year old male admitted for Acute Encephalopathy. SS met with patient at bedside to discuss discharge plan and verify demographic information. Patient reports his daughter, Mariza Curtis is his surrogate decision maker, . SS Also contacted patient's daughter Mariza Curtis. Patient's daughter was able to verify home address. Mariza reports she would like her sister, Estefani Wynn to be secondary point of contact, . Toro reports patient is independent with ADL's and does not utilize any source of DME to assist with ambulation. Choice of pharmacy is [facility] PCP is Pepe Chacon. At time of discharge family will provide transportation. Discharge plan: Home Next of kin: Daughter, Toro Curtis PCP:Pepe Christianson
--- NOTE | 2025-04-23 19:16 | PD.VCONSULT1 ---
Telemedicine visit statement This visit was conducted with the use of interactive audio and video telecommunications system that permits real time communication between the patient and the provider. Patient's verbal consent for virtual visit was obtained on 04/23/25 at 1916. Past Medical History Past Medical History CARDIAC: Positive Hypertension Social History SMOKING STATUS: Never smoker TeleMedicine ROS Pertinent Review of Systems Systems Reviewed: All systems reviewed, normal except as documented Meds Home Medications and Allergies Home Medications ?Medication ?Instructions ?Recorded ?Confirmed ?Type amlodipine 5 mg tablet 5 mg PO QDAY 04/23/25 04/23/25 History propranolol 60 mg capsule,24 60 mg PO QDAY 04/23/25 04/23/25 History hr,extended release Allergies Allergy/AdvReac Type Severity Reaction Status Date / Time NKA* Allergy Uncoded 04/23/25 04:56 Virtual exam Vital Signs Temp Pulse Resp BP Pulse Ox O2 Del Method 98.7 F 69 14 125/56 L 97 Room Air 04/23/25 16:00 04/23/25 16:00 04/23/25 16:00 04/23/25 16:00 04/23/25 16:00 04/23/25 16:00 Results Labs 04/25/25 06:01 04/25/25 06:01 Labs: Short CBC 04/23/25 Range/Units 11:02 WBC 9.2 (3.8-10.6) Thou/mm3 Hgb 16.7 H (13.5-16.0) g/dL Hct 47.0 (41.0-53.0) % Plt Count 238 (140-440) Thou/mm3 BMP 04/23/25 11:02 Sodium 141 Potassium 4.1 Chloride 106 Carbon Dioxide 21.7 BUN 5 L Creatinine 0.8 Glucose 120 H Calcium 9.2 Cardiac Enzymes 04/23/25 Range/Units 11:02 Troponin I < 0.002 (0.0-0.045) ng/mL Liver Function 04/23/25 Range/Units 11:02 Total Bilirubin 0.7 (0.3-1.2) mg/dL AST 30 (0-34) U/L ALT 21 (10-49) U/L Alkaline Phosphatase 96 (46-116) U/L Albumin 4.4 (3.4-4.8) gm/dL Urine 04/23/25 Range/Units 10:31 Urine Color Lt-Yellow (Lt Yel-Yel) Urine Clarity Clear (Clear/Hazy) Urine pH 7.0 (5.0-7.0) Ur Specific [place] 1.049 H (1.001-1.035) Urine Protein Negative (Neg - Trace) Urine Glucose (UA) Negative (Negative) Assessment & Plan Problem List (1) Mental status alteration: Status: Resolved Assessment and plan: fu with EEG monitor for recurrent episodes MRI brain: negative for acute infarction/other intracranial abnormality (2) Essential (primary) hypertension: Status: Chronic Assessment and plan: continue with home meds as the MRI brain is negative for acute infarction.
--- NOTE | 2025-04-23 22:38 | RESP.EEG ---
EEG has been completed and is ready for MD interpretation.
[2025-04-24] VITALS (11 sets, daily range): BP systolic 131–157; BP diastolic 69–75; PULSE 67–92; RESP 15–95; TEMP 36.4–37.2; O2SAT 96–99; BMI 28.3
[2025-04-24 06:11] LABS: Basophils # (Auto) 0.1 Thou/mm3 (0.0-0.2); Basophils % (Auto) 1 % (0-2.5); Eosinophils # (Auto) 0.2 Thou/mm3 (0.0-0.5); Eosinophils % (Auto) 2 % (0-10); Hematocrit 44.7 % (41.0-53.0); Hemoglobin 15.6 g/dL (13.5-16.0); Immature Granulocytes Auto 0.03 Thou/mm3 (0.00-0.00); Lymphocytes # (Auto) 2.7 Thou/mm3 (1.0-4.8); Lymphocytes % (Auto) 29 % (10-50); Mean Corpuscular HGB Conc 34.9 g/dl (31.0-37.0); Mean Corpuscular Hemoglobin 32.3 pg (25.0-35.0); Mean Corpuscular Volume 93 fL (80-100); Monocytes # (Auto) 0.8 Thou/mm3 (0.0-0.8); Monocytes % (Auto) 9 % (0-12); Neutrophils # (Auto) 5.4 Thou/mm3 (1.8-7.7); Neutrophils % (Auto) 59 % (37-80); Nucleated Red Blood Cell # 0.00 Thou/mm3 (0.00-0.00); Nucleated Red Blood Cell % 0 /100 WBC (0); Platelet Count 223 Thou/mm3 (140-440); RDW Standard Deviation 42.2 fL (35.1-43.9); Red Blood Count 4.83 Miln/mm3 (4.50-5.90); White Blood Count 9.2 Thou/mm3 (3.8-10.6)
[2025-04-24 06:26] LABS: INR 1.1 (0.9-1.3); Prothrombin Time 11.5 Seconds (9.0-12.2)
[2025-04-24 06:41] LABS: Alanine Aminotransferase 15 U/L (10-49); Albumin, Serum 4.0 gm/dL (3.4-4.8); Albumin/Globulin Ratio 1.7 (1.2-2.2); Alkaline Phosphatase 82 U/L (46-116); Anion Gap 12 (7-16); Aspartate Amino Transferase 19 U/L (0-34); BUN/Creatinine Ratio 9 Ratio (12-20); Bilirubin,Total 0.7 mg/dL (0.3-1.2); Blood Urea Nitrogen 7 mg/dL (9-23); Calcium 8.8 mg/dL (8.3-10.6); Calcium (Corrected) 8.8 mg/dL (8.5-10.1); Carbon Dioxide 25.5 mMol/L (20.0-31.0); Cardiac Risk Estimate 3.9 RATIO (4.0-6.7); Chloride 108 mMol/L (98-107); Cholesterol 155 mg/dL (132-200); Creatinine (Component) 0.8 mg/dL (0.6-1.3); Estimated Creatinine Clearance 87.1 mL/min (>60); Globulin 2.3 gm/dL (2.3-3.5); Glucose 110 mg/dL (74-106); HDL Cholesterol 40 mg/dL (40-60); LDL Cholesterol,Calculated 95 mg/dL (0-130); Magnesium 1.9 mg/dL (1.6-2.6); Osmolality,Calculated 287 (275-295); Phosphorous 2.3 mg/dL (2.4-5.1); Potassium 3.4 mMol/L (3.4-5.1); Sodium 145 mMol/L (136-145); Total Protein 6.3 gm/dL (5.7-8.2); Triglycerides 101 mg/dL (30-150); eGFR > 60 See Note
[2025-04-24] MEDS: NAPH,KPH MBDB 1 PACKET (1.5 GM) PO (08:44)
[2025-04-24] MEDS: DOCUSATE SOD 100 MG CAPSULE PO (08:44)
[2025-04-24] MEDS: ENOXAPARIN SOD INJ 40 MG/0.4 ML SYRINGE SC (08:45)
--- NOTE | 2025-04-24 09:47 | ESPR_ITS ---
<Statement entered by Estefany Sweet MD - 04/26/25 08:03> I reviewed above note and agree with findings and plans. I have also personally examined the patient with medicine team and went over assessment and plan with medical team including financial analyst intern and resident physician. Documentation for date of: 04/24/25 Subjective Subjective Interval history: Patient seen and examined this morning. He reports feeling well and back to his baseline. Denies any recurrent episodes of confusion, staring spells, loss of awareness, weakness, numbness, headache, chest pain, or shortness of breath. No events reported overnight per nursing. Patient remains amnestic to prior episodes. No new complaints. Exam Vital Signs Temp Pulse Resp BP Pulse Ox O2 Del Method 97.6 F 78 17 139/75 H 98 Room Air 04/24/25 07:51 04/24/25 08:44 04/24/25 07:51 04/24/25 08:44 04/24/25 07:51 04/24/25 07:51 Narrative Exam General: Alert, awake, oriented ?3 at time of exam, no acute distress HEENT: Normocephalic, atraumatic; pupils equal and reactive; moist mucous membranes Neck: Supple, no meningismus, no JVD Cardiovascular: Regular rate and rhythm; no murmurs, rubs, or gallops Pulmonary: Clear to auscultation bilaterally; no wheezes or rales Abdomen: Soft, non-tender, non-distended; normal bowel sounds Extremities: No edema; moves all extremities spontaneously Skin: Warm, dry, no rashes Neurologic: Cranial nerves II?XII grossly intact, Strength 5/5 in all extremities, No focal deficits, GCS 15. Psychiatric: Normal mood and affect; cooperative Objective Labs 04/24/25 04:20 04/24/25 04:20 Labs: Laboratory Results - last 24 hr 04/23/25 04/23/25 04/23/25 10:31 11:02 11:04 WBC 9.2 RBC 5.13 Hgb 16.7 H Hct 47.0 MCV 92 MCH 32.6 MCHC 35.5 RDW Std Deviation 40.9 Plt Count 238 Neut % (Auto) 68 Lymph % (Auto) 24 [place] % (Auto) 6 Eos % (Auto) 1 Baso % (Auto) 1 Neut # (Auto) 6.3 Lymph # (Auto) 2.2 [place] # (Auto) 0.6 Eos # (Auto) 0.1 Baso # (Auto) 0.1 Immature Gran # (Auto) 0.02 H Absolute Nucleated RBC 0.00 Immature Gran % 0 Nucleated RBC % 0 PT 10.9 INR 1.0 APTT 27.8 Sodium 141 Potassium 4.1 Chloride 106 Carbon Dioxide 21.7 Anion Gap 13 BUN 5 L Creatinine 0.8 Estim Creat Clear Calc 89.1 eGFR > 60 BUN/Creatinine Ratio 6 L Glucose 120 H Calculated Osmolality 279 Lactic Acid 1.5 Calcium 9.2 Corrected Calcium 9.2 Phosphorus Magnesium 2.0 Total Bilirubin 0.7 AST 30 ALT 21 Alkaline Phosphatase 96 Ammonia < 10 L Troponin I < 0.002 Total Protein 7.3 Albumin 4.4 Globulin 2.9 Albumin/Globulin Ratio 1.5 Triglycerides Cholesterol LDL Cholesterol, Calc HDL Cholesterol Cholesterol/HDL Ratio Vitamin B12 332 Folate > 24.00 Procalcitonin < 0.04 TSH 2.50 Ur Collection Type Clean Catch Urine Color Lt-Yellow Urine Clarity Clear Urine pH 7.0 Ur Specific Felt 1.049 H Urine Protein Negative Urine Glucose (UA) Negative Urine Ketones Negative Urine Blood Negative Urine Nitrite Negative Urine Bilirubin Negative Urine Urobilinogen (Auto) Negative Ur Leukocyte Esterase Negative Urine RBC 3 Urine WBC 1 Ur Squamous Epith Cells < 1 Urine Bacteria None Ur Culture Indicated? Not Indicated Urine Opiates Screen Negative Urine Fentanyl Screen Negative Ur Barbiturates Screen Negative U Amphetamin/Meth Scrn Negative U Benzodiazepines Scrn Negative U Cocaine Metab Screen Negative U Marijuana (THC) Screen Negative Ethyl Alcohol < 3.0 04/24/25 04:20 WBC 9.2 RBC 4.83 Hgb 15.6 Hct 44.7 MCV 93 MCH 32.3 MCHC 34.9 RDW Std Deviation 42.2 Plt Count 223 Neut % (Auto) 59 Lymph % (Auto) 29 [place] % (Auto) 9 Eos % (Auto) 2 Baso % (Auto) 1 Neut # (Auto) 5.4 Lymph # (Auto) 2.7 [place] # (Auto) 0.8 Eos # (Auto) 0.2 Baso # (Auto) 0.1 Immature Gran # (Auto) 0.03 H Absolute Nucleated RBC 0.00 Immature Gran % 0 Nucleated RBC % 0 PT 11.5 INR 1.1 APTT Sodium 145 Potassium 3.4 D Chloride 108 H Carbon Dioxide 25.5 Anion Gap 12 BUN 7 L Creatinine 0.8 Estim Creat Clear Calc 87.1 eGFR > 60 BUN/Creatinine Ratio 9 L Glucose 110 H Calculated Osmolality 287 Lactic Acid Calcium 8.8 Corrected Calcium 8.8 Phosphorus 2.3 L Magnesium 1.9 Total Bilirubin 0.7 AST 19 ALT 15 Alkaline Phosphatase 82 Ammonia Troponin I Total Protein 6.3 Albumin 4.0 Globulin 2.3 Albumin/Globulin Ratio 1.7 Triglycerides 101 Cholesterol 155 LDL Cholesterol, Calc 95 HDL Cholesterol 40 Cholesterol/HDL Ratio 3.9 L Vitamin B12 Folate Procalcitonin TSH Ur Collection Type Urine Color Urine Clarity Urine pH Ur Specific Felt Urine Protein Urine Glucose (UA) Urine Ketones Urine Blood Urine Nitrite Urine Bilirubin Urine Urobilinogen (Auto) Ur Leukocyte Esterase Urine RBC Urine WBC Ur Squamous Epith Cells Urine Bacteria Ur Culture Indicated? Urine Opiates Screen Urine Fentanyl Screen Ur Barbiturates Screen U Amphetamin/Meth Scrn U Benzodiazepines Scrn U Cocaine Metab Screen U Marijuana (THC) Screen Ethyl Alcohol Quality Measures Quality Measures VTE prophylaxis Advance care planning discussed with:: patient and child Assessment & Plan Assessment Current Active Medications: Generic Name Dose Route Start Last Admin Trade Name Freq PRN Reason Stop Dose Admin Acetaminophen 650 mg 04/23/25 11:42 Acetaminophen 325 Mg Tablet PO 05/23/25 11:41 Q6H PRN Fever >100.4 or pain Amlodipine Besylate 5 mg 04/24/25 09:00 04/24/25 08:44 Amlodipine Besylate 5 Mg Tablet PO 05/24/25 08:59 5 mg QDAY [facility] Administration Docusate Sodium 100 mg 04/24/25 09:00 04/24/25 08:44 Docusate Sod 100 Mg Capsule PO 05/24/25 08:59 100 mg QDAY ANN Administration Protocol Enoxaparin Sodium 40 mg 04/24/25 09:00 04/24/25 08:45 Enoxaparin Sod Inj 40 Mg/0.4 Ml Syringe SC 05/08/25 08:59 40 mg QDAY ANN Administration Levetiracetam 500 mg 04/24/25 09:45 Levetiracetam 250 Mg Tablet PO 05/24/25 09:44 BID ANN Ondansetron HCl 4 mg 04/23/25 11:42 Ondansetron Inj 2 Mg/Ml Inj 2 Ml IVP 05/23/25 11:41 Q6H PRN NAUSEA OR VOMITING Protocol Pantoprazole Sodium 40 mg 04/24/25 09:00 04/24/25 08:47 Pantoprazole Inj 40 Mg Vial IVP 05/24/25 08:59 40 mg QDAY ANN Administration Plan 74-year-old male with HTN and anxiety admitted for recurrent transient episodes of altered awareness, now with abnormal EEG findings consistent with seizure activity. #Newly diagnosed Seizure disorder #Transient altered mental status Witnessed episodes of confusion and impaired awareness with post-event amnesia MRI negative EEG abnormal with temporal spike-wave discharges Neurology involved Plan: * Start Levetiracetam (Keppra) 500 mg BID per neurology * Seizure precautions * Repeat EEG in 24 hours per neurology * Monitor mental status and for recurrent events * Avoid sedating medications #Hypertension Stable on current regimen BP 139/75 Plan: * Continue home amlodipine and propranolol * Monitor blood pressure #Vitamin B12 deficiency (mild) B12 mildly low at 332 Plan: * Start vitamin B12 supplementation # Anxiety History noted; not clearly on anxiolytics currently Anxiety alone unlikely to explain witnessed episodes with amnesia * Defer treatment changes pending neurologic evaluation Health Maintenance: Code Status: Full Code Diet: Regular VTE Prophylaxis: Enoxaparin GI Prophylaxis: Not indicated Activity: Ambulate with assistance; seizure/fall precautions Disposition: Continue inpatient monitoring pending repeat EEG and neurology recommendations ----- Plan discussed with attending physician Dr. Kee Cavazos MD PGY-1 Internal Medicine
--- NOTE | 2025-04-24 19:11 | VVPN_ITS ---
Telemedicine visit statement This visit was conducted with the use of interactive audio and video telecommunications system that permits real time communication between the patient and the provider. Patient's verbal consent for virtual visit was obtained on 04/24/25 at 1911. Documentation for date of: 04/24/25 Subjective Subjective Interval history: [facility] No similar symptoms reported after admission. He is back to his baseline. Virtual exam Vital Signs Temp Pulse Resp BP Pulse Ox O2 Del Method 97.6 F 84 17 157/69 H 98 Room Air 04/24/25 16:00 04/24/25 16:00 04/24/25 16:00 04/24/25 16:00 04/24/25 16:00 04/24/25 16:00 Objective Labs 04/24/25 04:20 04/24/25 04:20 Labs: Laboratory Results - last 24 hr 04/24/25 04:20 WBC 9.2 RBC 4.83 Hgb 15.6 Hct 44.7 MCV 93 MCH 32.3 MCHC 34.9 RDW Std Deviation 42.2 Plt Count 223 Neut % (Auto) 59 Lymph % (Auto) 29 [place] % (Auto) 9 Eos % (Auto) 2 Baso % (Auto) 1 Neut # (Auto) 5.4 Lymph # (Auto) 2.7 [place] # (Auto) 0.8 Eos # (Auto) 0.2 Baso # (Auto) 0.1 Immature Gran # (Auto) 0.03 H Absolute Nucleated RBC 0.00 Immature Gran % 0 Nucleated RBC % 0 PT 11.5 INR 1.1 Sodium 145 Potassium 3.4 D Chloride 108 H Carbon Dioxide 25.5 Anion Gap 12 BUN 7 L Creatinine 0.8 Estim Creat Clear Calc 87.1 eGFR > 60 BUN/Creatinine Ratio 9 L Glucose 110 H Calculated Osmolality 287 Calcium 8.8 Corrected Calcium 8.8 Phosphorus 2.3 L Magnesium 1.9 Total Bilirubin 0.7 AST 19 ALT 15 Alkaline Phosphatase 82 Total Protein 6.3 Albumin 4.0 Globulin 2.3 Albumin/Globulin Ratio 1.7 Triglycerides 101 Cholesterol 155 LDL Cholesterol, Calc 95 HDL Cholesterol 40 Cholesterol/HDL Ratio 3.9 L Assessment & Plan Problem List (1) Mental status alteration: Status: Acute Assessment and plan: As the EEG showed abnormalities suggestive of seizures, will start him on Keppra and will do the repeat EEG in 24 hours. monitor for recurrent episodes MRI brain: negative for acute infarction/other intracranial abnormality (2) Essential (primary) hypertension: Status: Chronic Assessment and plan: continue with home meds as the MRI brain is negative for acute infarction.
[2025-04-25] VITALS (10 sets, daily range): BP systolic 122–143; BP diastolic 71–82; PULSE 61–85; RESP 16–96; TEMP 36.2–36.6; O2SAT 95–97
[2025-04-25 06:28] LABS: Basophils # (Auto) 0.1 Thou/mm3 (0.0-0.2); Basophils % (Auto) 1 % (0-2.5); Eosinophils # (Auto) 0.2 Thou/mm3 (0.0-0.5); Eosinophils % (Auto) 3 % (0-10); Hematocrit 43.8 % (41.0-53.0); Hemoglobin 15.5 g/dL (13.5-16.0); Immature Granulocytes Auto 0.02 Thou/mm3 (0.00-0.00); Lymphocytes # (Auto) 2.2 Thou/mm3 (1.0-4.8); Lymphocytes % (Auto) 32 % (10-50); Mean Corpuscular HGB Conc 35.4 g/dl (31.0-37.0); Mean Corpuscular Hemoglobin 32.7 pg (25.0-35.0); Mean Corpuscular Volume 92 fL (80-100); Monocytes # (Auto) 0.7 Thou/mm3 (0.0-0.8); Monocytes % (Auto) 11 % (0-12); Neutrophils # (Auto) 3.6 Thou/mm3 (1.8-7.7); Neutrophils % (Auto) 52 % (37-80); Nucleated Red Blood Cell # 0.00 Thou/mm3 (0.00-0.00); Nucleated Red Blood Cell % 0 /100 WBC (0); Platelet Count 209 Thou/mm3 (140-440); RDW Standard Deviation 42.4 fL (35.1-43.9); Red Blood Count 4.74 Miln/mm3 (4.50-5.90); White Blood Count 6.8 Thou/mm3 (3.8-10.6)
[2025-04-25 06:58] LABS: Alanine Aminotransferase 13 U/L (10-49); Albumin, Serum 4.0 gm/dL (3.4-4.8); Albumin/Globulin Ratio 1.7 (1.2-2.2); Alkaline Phosphatase 81 U/L (46-116); Anion Gap 11 (7-16); Aspartate Amino Transferase 21 U/L (0-34); BUN/Creatinine Ratio 8 Ratio (12-20); Bilirubin,Total 0.7 mg/dL (0.3-1.2); Blood Urea Nitrogen 7 mg/dL (9-23); Calcium 8.7 mg/dL (8.3-10.6); Calcium (Corrected) 8.7 mg/dL (8.5-10.1); Carbon Dioxide 24.8 mMol/L (20.0-31.0); Chloride 108 mMol/L (98-107); Creatinine (Component) 0.9 mg/dL (0.6-1.3); Estimated Creatinine Clearance 77.2 mL/min (>60); Globulin 2.3 gm/dL (2.3-3.5); Glucose 112 mg/dL (74-106); Magnesium 2.0 mg/dL (1.6-2.6); Osmolality,Calculated 285 (275-295); Phosphorous 2.8 mg/dL (2.4-5.1); Potassium 3.5 mMol/L (3.4-5.1); Sodium 144 mMol/L (136-145); Total Protein 6.3 gm/dL (5.7-8.2); eGFR > 60 See Note
--- NOTE | 2025-04-25 08:03 | ESPR_ITS ---
<Statement entered by Estefany Sweet MD - 04/26/25 14:33> I reviewed above note and agree with findings and plans. I have also personally examined the patient with medicine team and went over assessment and plan with medical team including international organizer and resident physician. <Statement entered by Kilo Ch MD - 04/25/25 13:16> Patient was examined and case was reviewed with team including attending physician. Note reviewed, I agree with most of its contents and agree with the patient's care as documented by Dr. Al Patient seen today at the bedside found awake, alert, orientedx3. No overnight events reported. No active complaints at this time. Vitals and labs reviewed. Labs have been stable for the past couple of days will discontinue lab draws at this time. Patient is pending repeat EEG after starting Keppra 500 mg twice daily and final neuro recs. Anticipate discharge in the next 24-48 hours. Final disposition will be home Case discussed with my attending Dr. Kee Ch MD PGY-2 Disclaimer: Despite multiple revisions, due to the dictation software being used, the document bellow may not be free of grammatical errors including phonetic/typographic errors. However, this does not deter from our commitment to providing health care in the patient's best interest in mind. Documentation for date of: 04/25/25 Subjective Subjective Interval history: - No acute events overnight. - Patient seen and examined at bedside this morning. - Patient reports no complaints at this time. Denies any recurrent episodes of confusion, staring spells, loss of awareness, weakness, numbness, chest pain, or shortness of breath. - Pending repeat EEG. - Continue Keppra 500 mg BID per neurology recommendations. Exam Vital Signs Temp Pulse Resp BP Pulse Ox O2 Del Method 98 F 76 16 143/72 H 95 Room Air 04/25/25 04:00 04/25/25 07:00 04/25/25 07:00 04/25/25 04:00 04/25/25 04:00 04/25/25 04:00 Narrative Exam Physical Exam General: Awake and in no acute distress. Conversational and non-toxic appearing. HEENT: Normocephalic, atraumatic, extraocular movements intact, pupils equal and reactive to light. No JVD or bruits. Heart: Regular rate and rhythm, no murmurs, rubs or gallops. Lungs: Clear to auscultation with no wheezing or crackles bilaterally. Non- labored respirations, symmetric chest rise, no use of accessory muscles. Abdomen: Soft, nondistended, nontender. No guarding or rebound tenderness. Neurologic: Alert and oriented x3, no gross neurological deficit, and patient able to move all 4 extremities. Extremities: No edema, clubbing or cyanosis. No joint deformity. Skin: Warm and dry without rashes. Psychiatric: Cooperative, appropriate mood and affect. Objective Labs 04/25/25 06:01 04/25/25 06:01 Labs: Laboratory Results - last 24 hr 04/25/25 06:01 WBC 6.8 RBC 4.74 Hgb 15.5 Hct 43.8 MCV 92 MCH 32.7 MCHC 35.4 RDW Std Deviation 42.4 Plt Count 209 Neut % (Auto) 52 Lymph % (Auto) 32 [place] % (Auto) 11 Eos % (Auto) 3 Baso % (Auto) 1 Neut # (Auto) 3.6 Lymph # (Auto) 2.2 [place] # (Auto) 0.7 Eos # (Auto) 0.2 Baso # (Auto) 0.1 Immature Gran # (Auto) 0.02 H Absolute Nucleated RBC 0.00 Immature Gran % 0 Nucleated RBC % 0 Sodium 144 Potassium 3.5 Chloride 108 H Carbon Dioxide 24.8 Anion Gap 11 BUN 7 L Creatinine 0.9 Estim Creat Clear Calc 77.2 eGFR > 60 BUN/Creatinine Ratio 8 L Glucose 112 H Calculated Osmolality 285 Calcium 8.7 Corrected Calcium 8.7 Phosphorus 2.8 Magnesium 2.0 Total Bilirubin 0.7 AST 21 ALT 13 Alkaline Phosphatase 81 Total Protein 6.3 Albumin 4.0 Globulin 2.3 Albumin/Globulin Ratio 1.7 Quality Measures Quality Measures VTE prophylaxis Advance care planning discussed with:: patient Assessment & Plan Assessment Current Active Medications: Generic Name Dose Route Start Last Admin Trade Name Freq PRN Reason Stop Dose Admin Acetaminophen 650 mg 04/23/25 11:42 Acetaminophen 325 Mg Tablet PO 05/23/25 11:41 Q6H PRN Fever >100.4 or pain Amlodipine Besylate 5 mg 04/24/25 09:00 04/24/25 08:44 Amlodipine Besylate 5 Mg Tablet PO 05/24/25 08:59 5 mg QDAY ANN Administration Propranolol Er 60 Mg 0 ea 04/24/25 14:45 04/24/25 16:44 Capsule PO 05/24/25 14:44 Not Given QDAY ANN Docusate Sodium 100 mg 04/24/25 09:00 04/24/25 08:44 Docusate Sod 100 Mg Capsule PO 05/24/25 08:59 100 mg QDAY ANN Administration Protocol Enoxaparin Sodium 40 mg 04/24/25 09:00 04/24/25 08:45 Enoxaparin Sod Inj 40 Mg/0.4 Ml Syringe SC 05/08/25 08:59 40 mg QDAY ANN Administration Levetiracetam 500 mg 04/24/25 09:45 04/24/25 20:56 Levetiracetam 250 Mg Tablet PO 05/24/25 09:44 500 mg BID ANN Administration Ondansetron HCl 4 mg 04/23/25 11:42 Ondansetron Inj 2 Mg/Ml Inj 2 Ml IVP 05/23/25 11:41 Q6H PRN NAUSEA OR VOMITING Protocol Pantoprazole Sodium 40 mg 04/24/25 09:00 04/24/25 08:47 Pantoprazole Inj 40 Mg Vial IVP 05/24/25 08:59 40 mg QDAY ANN Administration Potassium Chloride 40 meq 04/25/25 08:01 Potassium Chloride 20 Meq Tabcr PO 04/25/25 08:02 X1 ONE Vitamin B Complex/Vit C/Folic Acid 1 tab 04/24/25 10:15 04/24/25 10:33 Vit B12/Vit C/Fa (Nephrovite) Tablet PO 05/24/25 10:14 Not Given QDAY ANN Plan 74-year-old male with hypertension and anxiety admitted for recurrent transient episodes of altered awareness, now with abnormal EEG findings consistent with seizure activity. #Seizure-like activity #Acute encephalopathy (resolved) - witnessed episodes of confusion and impaired awareness with post-event amnesia. - MRI negative. - EEG abnormal with temporal spike-wave discharges. Plan: * Continue Levetiracetam (Keppra) 500 mg BID per neurology. * Seizure precautions. * Repeat EEG in 24 hours per neurology. * Monitor mental status and for recurrent events. * Avoid sedating medications. #Hypertension Plan: * Continue home amlodipine 5mg QD and propranolol. * Monitor blood pressure. #Vitamin B12 deficiency (mild) - B12 mildly low at 332. Plan: * Start vitamin B12 supplementation. #Anxiety - History noted; not on anxiolytics currently. Health Maintenance Disposition: MedSurg, pending repeat EEG DVT prophylaxis: Enoxaparin GI prophylaxis: None Diet: Regular [place]: None Lines: Peripheral IV CODE STATUS: FULL --- Patient plan of care was discussed with the senior resident, Dr Orion Ch, and attending physician, Dr. Sweet. Margi Al DO PGY-1
[2025-04-25] MEDS: DOCUSATE SOD 100 MG CAPSULE PO (08:25)
[2025-04-25] MEDS: VIT B12/Vit C/FA (Nephrovite) TABLET 1 TAB PO (08:25)
[2025-04-25] MEDS: ENOXAPARIN SOD INJ 40 MG/0.4 ML SYRINGE SC (08:27)
[2025-04-25] MEDS: PROPRANOLOL ER 60 MG CAPSULE PO (08:27)
--- NOTE | 2025-04-25 21:00 | RESP.EEG ---
Repeat EEG has been completed and is ready for MD interpretation
--- NOTE | 2025-04-25 21:46 | PD.NEUROPROG ---
Documentation for date of: 04/25/25 Subjective Subjective Interval history: Patient was seen in [facility] today. No new symptoms or recurrent seizures after admission. No side effects on Keppra. Exam - Neurology Vital Signs Temp Pulse Resp BP Pulse Ox O2 Del Method 97.1 F 67 18 122/71 96 Room Air 04/25/25 20:00 04/25/25 20:00 04/25/25 20:00 04/25/25 20:00 04/25/25 20:00 04/25/25 20:00 Narrative Exam GENERAL APPEARANCE: Well hydrated, well-nourished in no acute distress. HEENT: Normocephalic, atraumatic, extraocular movements intact. Pupils: Equal reacting to light and accommodation NECK: Supple, no JVD or bruits. CARDIOVASULAR: Heart: S1, S2 heard, regular without S3-S4 or murmur no rubs or gallops. LUNGS/CHEST: Clear to auscultation bilaterally. No rails, rhonchi, or wheezing. Normal inspection. ABDOMEN: Soft, nontender, with normal bowel sounds. No pulsatile masses. No rebound, rigidity, or guarding. Normal inspection and palpation. EXTREMITIES: Normal inspection and palpation. No edema, clubbing or cyanosis. SKIN: Warm and dry without rashes. Normal inspection. MUSCULOSKELETAL: No cervical, thoracic, lumbar or midline bony tenderness. Normal inspection. NEURO: Alert, awake and oriented x3. Cranial nerves: II through XII grossly intact. Speech and language: Normal with no dysarthria or dysphasia. Motor system: Tone and bulk: Normal: Strength: 5 out of 5 in all 4 extremities; No pronator drift noted. Deep tendon reflexes: 2+ bilaterally symmetrical. Plantar reflex: Downgoing bilaterally. Sensory system: Intact to all modalities of sensation bilaterally. Coordination: Intact to [id number] and [id number] test bilaterally. No ataxia, no dysmetria, or dysdiadochokinesia noted. No intention tremors noted. Gait: Normal. Toe, heel, tandem walk all are normal. [place]: Negative. No signs of meningeal irritation noted. PSYCHIATRIC: Normal mood and affect. Objective Labs 04/25/25 06:01 04/25/25 06:01 Labs: Laboratory Results - last 24 hr 04/25/25 06:01 WBC 6.8 RBC 4.74 Hgb 15.5 Hct 43.8 MCV 92 MCH 32.7 MCHC 35.4 RDW Std Deviation 42.4 Plt Count 209 Neut % (Auto) 52 Lymph % (Auto) 32 [place] % (Auto) 11 Eos % (Auto) 3 Baso % (Auto) 1 Neut # (Auto) 3.6 Lymph # (Auto) 2.2 [place] # (Auto) 0.7 Eos # (Auto) 0.2 Baso # (Auto) 0.1 Immature Gran # (Auto) 0.02 H Absolute Nucleated RBC 0.00 Immature Gran % 0 Nucleated RBC % 0 Sodium 144 Potassium 3.5 Chloride 108 H Carbon Dioxide 24.8 Anion Gap 11 BUN 7 L Creatinine 0.9 Estim Creat Clear Calc 77.2 eGFR > 60 BUN/Creatinine Ratio 8 L Glucose 112 H Calculated Osmolality 285 Calcium 8.7 Corrected Calcium 8.7 Phosphorus 2.8 Magnesium 2.0 Total Bilirubin 0.7 AST 21 ALT 13 Alkaline Phosphatase 81 Total Protein 6.3 Albumin 4.0 Globulin 2.3 Albumin/Globulin Ratio 1.7 Assessment & Plan Assessment and plan (1) Mental status alteration: Status: Resolved Assessment and plan: As the EEG was abnormal suggestive of seizures, started him on Keppra. Follow-up with repeat EEG (2) Essential (primary) hypertension: Status: Chronic
[2025-04-26] VITALS: BP 132/85; PULSE 84; RESP 17; TEMP 36.7; O2SAT 98
[2025-04-26 04:00] VITALS: BP 133/64; PULSE 68; PULSE 80; RESP 17; TEMP 36.4; O2SAT 97
[2025-04-26 06:00] VITALS: BMI 28.5
[2025-04-26 08:00] VITALS: BP 137/79; PULSE 64; PULSE 71; RESP 19; TEMP 36.1; O2SAT 95
[2025-04-26 08:56] VITALS: BP 133/76; PULSE 68
[2025-04-26] MEDS: PROPRANOLOL ER 60 MG CAPSULE PO (08:56)
[2025-04-26] MEDS: ENOXAPARIN SOD INJ 40 MG/0.4 ML SYRINGE SC (08:56)
[2025-04-26] MEDS: DOCUSATE SOD 100 MG CAPSULE PO (08:56)
[2025-04-26] MEDS: VIT B12/Vit C/FA (Nephrovite) TABLET 1 TAB PO (08:56)
--- NOTE | 2025-04-26 11:47 | ESDS_ITS ---
<Statement entered by Estefany Sweet MD - 05/07/25 07:43> I reviewed above note and agree with findings and plans. I have also personally examined the patient with medicine team and went over assessment and plan with medical team including pharmacy grad intern and resident physician. <Statement entered by Kilo Ch MD - 04/26/25 14:13> Patient was examined and case was reviewed with team including attending physician. Note reviewed, I agree with most of its contents and agree with the patient's care. Kilo Ch MD PGY-2 Planned Discharge Date 04/26/25 DS: Providers Provider Date of admission: 04/23/25 11:42 Primary care physician: Pepe Christianson MD Admitting Provider: Bennie Gonzales MD Attending Provider on Admission: Bennie Gonzales MD Consults: 04/23/25 11:48 Consult to Neurology / Tele-Neurology Routine Comment: Consulting Provider: Wayne Hauser Attending Provider on DC: Margi Al DO Discharging Provider: Margi Al DO DS: Diagnosis Problem List Completed Was Problem List Reviewed/Reconciled?: Yes Hospital Course Hospital Course Hospital course: 74-year-old male with a history of hypertension and anxiety who was admitted for evaluation of recurrent transient episodes of altered awareness and confusion, witnessed by family and associated with post-event amnesia. Initial workup in the emergency department, including laboratory studies, CT head, CTA head/neck, EKG, toxicology screen, ammonia level, and urinalysis, was unremarkable. During hospitalization, the patient remained hemodynamically stable and at neurologic baseline, without further witnessed episodes. MRI brain was negative for acute intracranial pathology. EEG demonstrated abnormal findings with questionable slowing and spike-wave discharges involving the bilateral temporal and anterior temporal regions, suggestive of seizure activity. Neurology was consulted and recommended initiation of antiepileptic therapy. The patient was started on levetiracetam (Keppra) 500 mg twice daily, which he tolerated without adverse effects. Vitamin B12 level was noted to be mildly low and supplementation was initiated. Blood pressures remained controlled on home antihypertensive therapy. The patient and family were counseled on seizure precautions and medication adherence. A repeat EEG confirmed abnormal findings suggestive of seizure activity. At the time of discharge, the patient was clinically stable, neurologically intact, and at his baseline mental status, with plans for outpatient neurology follow-up. He was advised not to drive until cleared by Neurology and to continue prescribed seizure medication. Discharge Diagnoses: #Seizure disorder #Transient altered mental status #Hypertension #Vitamin B12 deficiency #Anxiety Discharge Plan: Follow up with primary care physician within 1 week of discharge. Instructions have been explained to the patient with regards to their medications and how to take them. Patient was able to explain back to physician and nursing staff how to take their medications. Patient expressed understanding with instructions. Please follow up with Neurologist Dr. Hauser in [address] week[address] drive or operate heavy machinery until after seeing neurologist. You have been started on Keppra 500mg twice daily. Continue to take the rest of your medications as prescribed by your primary care physician. Patient has been explained that should any symptoms recur or worsen patient is instructed to return to the Emergency Department. --- Case discussed with my senior resident Dr. Orion Ch. Case discussed with my attending Dr. Sweet. Margi Al, PGY-1 Status at Discharge Overall status at discharge: patient is back to baseline Time Spent with Patient Time attestation: Total time spent providing and/or coordinating discharge services: Time spent: Greater than 30 minutes Exam Vital Signs Temp Pulse Resp BP Pulse Ox O2 Del Method 97.0 F 68 19 133/76 H 95 Room Air 04/26/25 08:00 04/26/25 08:56 04/26/25 08:00 04/26/25 08:56 04/26/25 08:00 04/26/25 04:00 Narrative Exam Physical Exam General: Awake and in no acute distress. Conversational and non-toxic appearing. HEENT: Normocephalic, atraumatic, extraocular movements intact, pupils equal and reactive to light. No JVD or bruits. Heart: Regular rate and rhythm, no murmurs, rubs or gallops. Lungs: Clear to auscultation with no wheezing or crackles bilaterally. Non- labored respirations, symmetric chest rise, no use of accessory muscles. Abdomen: Soft, nondistended, nontender. No guarding or rebound tenderness. Neurologic: Alert and oriented x3, no gross neurological deficit, and patient able to move all 4 extremities. Extremities: No edema, clubbing or cyanosis. No joint deformity. Skin: Warm and dry without rashes. Psychiatric: Cooperative, appropriate mood and affect. Discharge Plan Plan Patient Disposition: HOME (Self Care) Care Plan Goals: Follow up with primary care physician within 1 week of discharge Instructions have been explained to the patient with regards to their medications and how to take them. Patient was able to explain back to physician and nursing staff how to take their medications. Patient expressed understanding with instructions. Please follow up with Neurologist Dr. Hauser in [address] week[address] or operate heavy machinery until after seeing neurologist. You have been started on Keppra 500mg twice daily Continue to take the rest of your medications as prescribed by your primary care physician. Patient has been explained that should any symptoms recur or worsen patient is instructed to return to the Emergency Department. Prescriptions/Referrals Prescriptions/Med Rec: New levetiracetam [Keppra] 500 mg tablet 500 mg PO BID 30 Days Qty: 60 2RF Continued amlodipine 5 mg tablet 5 mg PO QDAY Patient Comments: TAKE 1 TABLET BY MOUTH EVERY DAY FOR BLOOD PRESSURE propranolol 60 mg capsule,extended release 24 hr 60 mg PO QDAY Patient Comments: TAKE 1 CAPSULE BY MOUTH ONCE A DAY FOR FOR BLOOD PRESSURE Referrals: Pepe Christianson MD [Primary Care Provider, Family Practice] Wayne Hauser MD [Physician, Neurology] Patient/Caregiver Discharge Instructions Education Materials: Hypertension Dc Print Language: Fijian Stand Alone Forms: [facility] Award Info., Patient Portal Info Letter Discharge Order Discharge Orders: Discharge (Routine); Ordered 04/26/25 Ordered By: Margi Al Quality Discharge Quality Measures VTE prophylaxis
[2025-04-26 12:00] VITALS: BP 133/70; PULSE 61; PULSE 77; RESP 19; TEMP 36.1; O2SAT 98
--- NOTE | 2025-04-26 14:53 | PC.SS ---
Rounding: Plan for DC today home
[2025-04-26 15:50] VITALS: BP 133/66; PULSE 64; RESP 18; TEMP 36.1; O2SAT 92
--- NOTE | 2025-04-27 06:41 | PD.VPROG1 ---
Telemedicine visit statement This visit was conducted with the use of interactive audio and video telecommunications system that permits real time communication between the patient and the provider. Patient's verbal consent for virtual visit was obtained on 04/27/25 at 0641. Documentation for date of: 04/27/25 Subjective Subjective Interval history: Patient is in [facility]. No similar symptoms reported after admission. He is back to his baseline. Virtual exam Vital Signs Temp Pulse Resp BP Pulse Ox O2 Del Method 97.0 F 64 18 133/66 H 92 L Room Air 04/26/25 15:50 04/26/25 15:50 04/26/25 15:50 04/26/25 15:50 04/26/25 15:50 04/26/25 15:50 Objective Labs 04/25/25 06:01 04/25/25 06:01 Assessment & Plan Problem List (1) Mental status alteration: Status: Resolved Assessment and plan: As the EEG showed abnormal study even on the repeat EEG, we will continue with Keppra. No driving advised. Okay to be discharged (2) Essential (primary) hypertension: Status: Chronic Assessment and plan: Under control on amlodipine
== END 2025-04-26 16:05 | disposition home or self-care (01) | DRG 101 ==
LOC: SERX 06:41 → SERHOLD 12:02 → S3NX 15:22
PROVIDERS: Admitting Provider Student in an Organized Health Care Education/Training Program; Emergency Provider Emergency Medicine; PCP Family Medicine; Visit Provider Student in an Organized Health Care Education/Training Program
DX: G40.909 Epilepsy, unspecified, not intractable, without status epilepticus (principal); I10 Essential (primary) hypertension; E53.8 Deficiency of other specified B group vitamins; F41.9 Anxiety disorder, unspecified; R41.3 Other amnesia; Z79.899 Other long term (current) drug therapy
CPT/HCPCS: 36415; 36600; 70496; 70498; 70553; 80053; 80061; 80307; 80320; 81001; 82140; 82607; 82746; 82803; 83605; 83735; 84100; 84145; 84443; 84484; 85025; 85610; 85730; 87040; 93005; 95816; 96365; 99284; A4649; A9577; J0696; J1650; J2470; J7030; Q9967; A9270; G0480